=== PATIENT | female | born 1955 | race Caucasian/White ===

== ENCOUNTER → 2016-11-25 | Outpatient (CLI) | payer BC ==
[~2016-11-25] MED LIST: ACET-1311; ASPEC81; CALCIUM PLUS D; IBUP-1050; MULT-506; NITR-5 PO; PHEN-876 PO
--- NOTE | 2016-11-25 11:31 | DIAGNOSTIC IMAGING REPORT ---
LEFT FOURTH FINGER 4 VIEWS CLINICAL HISTORY: Fourth finger pain. FINDINGS: 4 views of the left fourth digital are obtained. No prior studies are available for comparison at the time of dictation. The skeletal structures are osteopenic. A ring is present on the fourth finger. No fracture is seen. Minimal osteoarthritic change is present involving the interphalangeal joints. The joints of the finger are otherwise well-maintained. Mild soft tissues swelling is noted around the proximal interphalangeal joint. IMPRESSION: 1. Mild soft tissue swelling with no acute bony abnormality seen in the left fourth finger. 2. Osteopenia and minimal arthritic change as above. Electronically signed by: Govind Reveles M.D. 11/25/2016 11:29 AM Dictated Date/Time: 11/25/2016 11:28 AM
== END | disposition home or self-care (01) ==
LOC: C.RAD1850 10:57
PROVIDERS: ATTEND Dermatology
DX: L84 Corns and callosities (principal); M85.842 Other specified disorders of bone density and structure, left hand

== ENCOUNTER → 2017-01-31 | Outpatient (CLI) | payer BC ==
--- NOTE | 2017-01-31 12:30 | MAMMOGRAPHY REPORT ---
BILATERAL DIGITAL SCREENING MAMMOGRAM WITH CAD: 01/31/2017 CLINICAL HISTORY: Routine screening. TECHNIQUE: Bilateral CC and MLO views were obtained. A repeat left MLO view was performed for a skin fold. Current study was also evaluated with a Computer Aided Detection (CAD) system. COMPARISON: Comparison is made to exams dated: 01/26/2016 mammogram, 01/21/2015 mammogram, 01/18/2014 ma mmogram, 01/16/2013 mammogram, 01/10/2012 mammogram, and 12/24/2010 mammogram - [facility] nter. BREAST COMPOSITION: The tissue of both breasts is extremely dense, which lowers the sensitivity of m ammography. FINDINGS: The parenchymal pattern is similar to prior exams. There are scattered stable round and p unctate microcalcifications bilaterally. No developing mass, architectural distortion or cluster of suspicious microcalcifications is seen in either breast. IMPRESSION: ACR BI-RADS CATEGORY 2: BENIGN There is no mammographic evidence of malignancy. A 1 year screening mammogram is recommended. The pa tient will receive written notification of the results. Approximately 10% of breast cancers are not detected with mammography. A negative mammographic report should not delay biopsy if a clinically suggestive mass is present. Amanda Griffith M.D. ay/:01/31/2017 08:28:04 Sales Representative [employer]: Paul BURKS(Abelino)(M), [facility] letter sent: Normal 1/2 BI-RADS Code: ACR BI-RADS Category 2: Benign
== END | disposition home or self-care (01) ==
LOC: C.MAMM 07:08
PROVIDERS: ATTEND Family Medicine
DX: Z12.31 Encounter for screening mammogram for malignant neoplasm of breast (principal)

== ENCOUNTER → 2017-05-16 | Outpatient (CLI) | payer BC | END | disposition home or self-care (01) | LOC: C.MAMM 08:52 | PROVIDERS: ATTEND Family Medicine | DX: M85.852 Other specified disorders of bone density and structure, left thigh (principal); M85.851 Other specified disorders of bone density and structure, right thigh ==

== ENCOUNTER → 2018-02-10 | Outpatient (CLI) | payer BC ==
--- NOTE | 2018-02-10 15:42 | MAMMOGRAPHY REPORT ---
BILATERAL DIGITAL SCREENING MAMMOGRAM TOMOSYNTHESIS WITH CAD: 02/10/2018 CLINICAL HISTORY: Routine screening. TECHNIQUE: The study was acquired using full field digital technology and interpreted from soft copy. Breast tomosynthesis in addition to standard 2D mammography was performed. Current study was also ev aluated with a Computer Aided Detection (CAD) system. COMPARISON: Comparison is made to exams dated: 01/31/2017 mammogram, 01/26/2016 mammogram, 01/21/2015 himanshu mogram, 01/18/2014 mammogram, 01/16/2013 mammogram, and 01/10/2012 mammogram - [facility]. BREAST COMPOSITION: The tissue of both breasts is extremely dense, which lowers the sensitivity of ma mmography. FINDINGS: No suspicious masses, calcifications, or areas of architectural distortion are noted in either breast . There has been no significant interval change compared to prior exams. IMPRESSION: ACR BI-RADS CATEGORY 1: NEGATIVE There is no mammographic evidence of malignancy. A 1 year screening mammogram is recommended.( [id number]) The patient will receive written notification of the results. Some breast cancers are not detected with mammography. A negative mammographic report should not joanne y biopsy if a clinically suggestive mass is present. Mary Anne Mancuso M.D. ah/:02/10/2018 14:39:26 Campaign Marketing Specialist: RT Adriana(Abelino)(M), [facility] letter sent: Normal 1/2 BI-RADS Code: ACR BI-RADS Category 1: Negative
== END | disposition home or self-care (01) ==
LOC: C.MAMM 11:04
PROVIDERS: ATTEND Family Medicine
DX: Z12.31 Encounter for screening mammogram for malignant neoplasm of breast (principal)